=== PATIENT | female | born 1955 | race Caucasian/White ===

== ENCOUNTER → 2016-05-22 | Outpatient (CLI) | payer OTHER ==
[~2016-05-22] MED LIST: ASPCH81X PO; BIOT1CAP8 PO; CALC600T37 PO; CALCTAB5 PO; CHOL100010 PO; CITA40TA12 PO; CLX20 PO; FOLI1TAB7 PO; IBAN150T PO; METO25TA3 PO; MOME6000 NAE; VITACAP26 PO; VNCAQN INH
--- NOTE | 2016-05-22 08:24 | DIAGNOSTIC IMAGING REPORT ---
RIGHT ELBOW MIN 3 VIEWS ROUTINE CLINICAL HISTORY: ELBOW PAIN Right pain COMPARISON: None. DISCUSSION: The bones and joint spaces appear intact. There is no evidence of fracture, dislocation or bony disease. There is no evidence for soft tissue swelling. IMPRESSION: Negative study. Electronically signed by: Yung Medina M.D. 05/22/2016 8:23 AM Dictated Date/Time: 05/22/2016 8:22 AM
== END | disposition home or self-care (01) ==
LOC: C.RAD 07:54
PROVIDERS: ATTEND Orthopaedic Surgery
DX: M25.521 Pain in right elbow (principal)

== ENCOUNTER 2016-09-29 08:59 | Emergency (ER) | payer OTHER ==
[~2016-09-29] VITALS: Ht 175.3 cm; Wt 70.9 kg
[~2016-09-29 08:59] MED LIST changes: -BIOT1CAP8 PO; -CALC600T37 PO; -CITA40TA12 PO; -FOLI1TAB7 PO; -MOME6000 NAE; -VITACAP26 PO
[2016-09-29 09:07] VITALS: TEMP 36.7; Ht 175.3 cm; Wt 70.9 kg
--- NOTE | 2016-09-29 09:24 | EMERGENCY ROOM VISIT NOTE ---
History Report prepared by Zeinab: Mattie Blanchard Under the Supervision of: Dr. Jerome Delgado M.D. 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 The patient states that she was working and noticed that she had black spots and streaks in her vision. She notes that she is also noticing some blurry vision that may be secondary to the black streaks in her vision. The patient denies any numbness, pain, headache, palpitations, heavy lifting, and medication changes. She notes a history of intermittent atrial fibrillation and SVT. 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 The patient denies any pain, headache, palpitations, heavy lifting, and medication changes. Review of Systems All systems have been listed, reviewed, and are negative other than those previously mentioned. Please see Additional Medical History Sheet. Past Medical & Surgical Medical Problems: (1) Hypertension Nos Family History No pertinent family history stated. Social History Smoking Status: Never Smoker Marital Status: Housing Status: lives with significant other Occupation Status: employed Current/Historical Medications Scheduled Aspirin (Aspirin Chewable), 81 MG PO DAILY Biotin (Biotin), 1 CAP PO DAILY Calcium (Calcium), 1 TAB PO DAILY Cholecalciferol (Vitamin D), 1 TAB PO DAILY Citalopram Hydrobromide (Celexa), 40 MG PO DAILY Folic Acid (Folvite), 1 TAB PO DAILY Metoprolol Succ (Toprol Xl) (Toprol-Xl), 12.5 MG PO BID Vitamins C & E (Vitamin C), 1 CAP PO DAILY Scheduled PRN Mometasone Furoate (Nasal) (Mometasone Furoate), 2 SPRAYS BEKAH DAILY PRN for ALLERGIES Allergies Coded Allergies: Sulfa Antibiotics (Verified Allergy, Unknown, ., 05/18/14) Physical Exam Vital Signs Date Time Temp Pulse Resp B/P (MAP) Pulse Ox O2 Delivery O2 Flow Rate FiO2 09/29/16 10:31 59 16 123/64 95 09/29/16 09:07 36.7 70 20 121/74 96 Room Air Physical Exam GENERAL: Patient awake, alert, oriented x 3. Patient follows commands. Patient does not appear toxic. Patient is adequately hydrated and well- nourished. SKIN: No erythema, pallor, cyanosis or rash HEENT: Normal head, pupils equal, reactive to light and accommodation, extraocular movements intact, funduscopic disc, vessels, and background appear normal, no signs of a bleed or retinal detachment. Tonometry left eye 15.3 right eye 17. Ears normal. Oral cavity and posterior pharynx appear normal. Neck: Without adenopathy, no neck vein distention. LUNGS: Clear to auscultation. No wheezes, no rales, no rhonchi. HEART: No murmurs. No gallops. No rubs ABDOMEN: No masses, no rebound, no hepatomegaly or splenomegaly. EXTREMITIES: No signs of trauma. No pedal or pretibial edema. No calf or thigh tenderness. NEUROLOGIC: Cranial nerves II-XII within normal limits. No gross motor sensory function deficits. VISUAL ACUITY: Right eye 20/40 left eye is 20/30 Medical Decision & Procedures Procedure Slit Lamp Examination Indication: black spots left eye The left eye was prepped with topical proparacaine. Slit lamp examination was performed in the standard fashion. Cornea appeared clear. Anterior chamber clear. Scleral injection not present. No discharge present. Fluorescein examination performed and revealed no uptake. No foreign bodies noted. Negative Mateo sign. The patient tolerated the procedure well without complication. ED Course 0914: Past medical records reviewed. The patient was evaluated in room B11B. A complete history and physical examination was performed. 0943: I performed a slit lamp exam. 1020: Upon reevaluation, the patient appeared to have improvement of her symptoms. I discussed today's findings with the patient. She verbalized agreement of the treatment plan. The patient was discharged home. Medical Decision Differential diagnosis includes retinal detachment and floaters. Medication Reconciliation: I attest that I have personally reviewed the patient' s current medication list. Blood pressure Screening: Patient was found to have normal blood pressure on screening and does not require follow up. The patient is here with black streaks and black dots in her left eye. Funduscopic exam, slit lamp exam and tonometry all appear within normal. I remain concerned about a possible vitreous hemorrhage or retinal detachment. Discussion was held over the phone with Dr. Reyes. He will see the patient later today. I also discussed care with the patient. Impression Primary Impression: Visual field defect Scribe Attestation The scribe's documentation has been prepared under my direction and personally reviewed by me in its entirety. I confirm that the note above accurately reflects all work, treatment, procedures, and medical decision making performed by me. Departure Information Dispostion Home / Self-Care Referrals Mica Florentino D.O. (PCP) Monty Reyes M.D. Forms HOME CARE DOCUMENTATION FORM, IMPORTANT VISIT INFORMATION, WORK / SCHOOL INSTRUCTIONS Patient Instructions My [facility] Additional Instructions Follow-up with Dr. Gomez at 1245 today in his office. Off work until then.
[2016-09-29] MEDS ORDERED: CITA40TA12 PO (09:55)
[2016-09-29] MEDS ORDERED: FOLI1TAB7 PO (09:55)
[2016-09-29] MEDS ORDERED: MOME6000 NAE (09:55)
[2016-09-29] MEDS ORDERED: CALC600T37 PO (09:55)
[2016-09-29] MEDS ORDERED: VITACAP26 PO (09:55)
[2016-09-29] MEDS ORDERED: CHOL100010 PO (09:55)
[2016-09-29] MEDS ORDERED: BIOT1CAP8 PO (09:55)
[2016-09-29 10:31] VITALS: BP 123/64; PULSE 59; O2SAT 95
== END 2016-09-29 10:32 | disposition home or self-care (01) ==
LOC: C.EDB 08:59
DX: H53.452 Other localized visual field defect, left eye (principal); I10 Essential (primary) hypertension; Z79.82 Long term (current) use of aspirin

== ENCOUNTER 2017-04-19 07:48 | Emergency (ER) | payer OTHER ==
[~2017-04-19] VITALS: Ht 175.3 cm; Wt 68.8 kg
[~2017-04-19 07:48] MED LIST changes: +BIOT1CAP8 PO; +CALC600T37 PO; -CALCTAB5 PO; +CITA40TA12 PO; -CLX20 PO; +FOLI1TAB8 PO; -IBAN150T PO; +MOME6000 NAE; +VITACAP26 PO; -VNCAQN INH
[2017-04-19 07:49] VITALS: TEMP 36.7; Ht 175.3 cm; Wt 68.8 kg
[2017-04-19] MEDS ORDERED: CALC-393 PO (08:00)
--- NOTE | 2017-04-19 08:05 | EMERGENCY ROOM VISIT NOTE ---
History Report prepared by Zeinab: James Puga Under the Supervision of: Dr. Jerome Delgado M.D. First contact with patient: 07:55 Chief Complaint: SWELLING TO EXTREMITY Stated Complaint: FACIAL AND NECK EDEMA,DIZZINESS History of Present Illness The patient is a 62 year old female who presents to the Emergency Room with complaints of worsening upper body swelling that started a week and a half ago. She states that before the swelling started, she was seen by Dr. Herman (her family doctor), and was told that she had a viral illness. However, the patient says that a few mornings later, she woke up with swelling in her neck, face, and under her arms. She notes that the swelling has been worsening, and today the swelling is worse on her right side. She adds that she started feeling dizzy today in addition to some lightheadedness. The patient states that she has had lab testing a week ago at [facility] as well as a mammogram, ultrasound, and x-ray, which were all normal. She has a CT scan scheduled for tomorrow. She denies any fevers, chills, abdominal pain, back pain, urinary symptoms, leg pain , hand swelling, or feet swelling. Source of History: patient Onset: A week and a half ago Position: other (upper body ) Quality: other (swelling) Timing: worsening Associated Symptoms: No fevers, No chills, No abdominal pain, No back pain, No urinary symptoms Note: Associated symptoms: Dizzy, lightheaded. Denies leg pain, hand swelling, feet swelling. Review of Systems All systems have been listed, reviewed, and are negative other than those previously mentioned. Please see Additional Medical History Sheet. Past Medical & Surgical Medical Problems: (1) Hypertension Nos Family History Diabetes mellitus Heart disease Hypertension Social History Smoking Status: Never Smoker Marital Status: Housing Status: lives with significant other Occupation Status: employed Current/Historical Medications Scheduled Aspirin (Aspirin Chewable), 81 MG PO DAILY Biotin (Biotin), 1 CAP PO DAILY Calcium Carbonate (Calcium), 1,200 MG PO DAILY Cholecalciferol (Vitamin D), 1 TAB PO DAILY Citalopram Hydrobromide (Celexa), 40 MG PO DAILY Folic Acid (Folvite), 1 TAB PO DAILY Metoprolol Succ (Toprol Xl) (Toprol-Xl), 12.5 MG PO BID Scheduled PRN Mometasone Furoate (Nasal) (Mometasone Furoate), 2 SPRAYS BEKAH DAILY PRN for ALLERGIES Allergies Coded Allergies: Sulfa Antibiotics (Verified Allergy, Unknown, ., 04/19/17) Physical Exam Vital Signs Date Time Temp Pulse Resp B/P (MAP) Pulse Ox O2 Delivery O2 Flow Rate FiO2 04/19/17 09:35 71 18 126/73 96 Room Air 04/19/17 07:49 36.7 72 20 135/83 97 Room Air Physical Exam GENERAL: Patient awake, alert, oriented x 3. Patient follows commands. Patient does not appear toxic. Patient is adequately hydrated and well- nourished. SKIN: No erythema, pallor, cyanosis or rash HEENT: Normal head, pupils equal, reactive to light and accommodation. Ears normal. Oral cavity and posterior pharynx appear normal. Neck: Without adenopathy, no neck vein distention. LUNGS: Clear to auscultation. No wheezes, no rales, no rhonchi. HEART: No murmurs. No gallops. No rubs CHEST: Patient has slight edema to upper chest and neck. No cervical adenopathy. No masses, no signs of infection. ABDOMEN: No masses, no rebound, no hepatomegaly or splenomegaly. EXTREMITIES: No signs of trauma. No pedal or pretibial edema. No calf or thigh tenderness. NEUROLOGIC: Cranial nerves II-XII within normal limits. No gross motor sensory function deficits. Medical Decision & Procedures ER Provider Diagnostic Interpretation: CT results are interpretations by the radiologist and per my review. CHEST CT WITH CONTRAST CT DOSE: HISTORY: swelling upper chest and neck TECHNIQUE: Multiaxial CT images of the chest were performed following the intravenous administration of contrast. A dose lowering technique was utilized adhering to the principles of ALARA. COMPARISON: None. FINDINGS: 5 mm nodule within the left major fissure on image 178. Mild biapical pleural-parenchymal scarring. A 4 mm nodule within the right middle lobe on image 174. A 4 mm nodule within the right middle lobe on image 216. A 7 mm nodule within the base of the right lower lobe on image 234. There are 2 adjacent nodules within the right lower lobe in image 29 with the largest measuring 4 mm. Patchy groundglass density seen within the bases of the bilateral lower lobes. The central airways are patent. No pleural effusions. No pneumothorax. No suspicious lytic or blastic osseous lesions. No soft tissue edema within the neck base or anterior chest. A 1 cm nodule within the left thyroid lobe. The major vascular structures within the mediastinum are patent. Normal caliber thoracic aorta. The heart is normal in size. No mediastinal or hilar lymphadenopathy. A few scattered hypodense lesions seen within the liver with the largest in the left hepatic lobe measuring 5 mm. These are too small to characterize. The spleen and adrenal glands are unremarkable. IMPRESSION: 1. No significant soft tissue swelling seen within the neck base or chest. 2. The major mediastinal vascular structures are patent. 3. Patchy ground glass densities within the base of the bilateral lower lobes. This favors mild dependent change. A pneumonia could also have a similar appearance but is considered less likely. Clinical correlation recommended. 4. A few scattered subcentimeter indeterminate pulmonary nodules with the largest in the right lower lobe measuring 7 mm. Please refer to the chart below for recommended follow-up. Please refer to below summary of Fleischner criteria recommendations for follow-up of incidental CT nodules (Maite March, Guidelines for management of small pulmonary nodules detected on CT scans: A statement from the Fleischner Society, Radiology 237: [phone].) SOLID NODULES Solitary nodule size: <6 mm * Low risk patients: no follow-up needed * high risk patients: optional CT at 12 months Solitary nodule size: 6-8 mm * Low risk patients: follow-up at 6-12 months, then consider further follow-up at 18-24 months * high risk patients: initial follow-up CT at 6-12 months and then at 18-24 months if no change Solitary nodule size: >8 mm * either low or high risk patients - consider follow-up CT at 3 months, and/or CT-PET, and/or biopsy Multiple nodules size: <6 mm * Low risk patients: no routine follow-up * high risk patients: optional CT at 12 months Multiple nodules size: 6-8 mm * Low risk patients: follow-up at 3-6 months, then consider further follow-up at 18-24 months * high risk patients: follow-up at 3-6 months, then at 18-24 months if no change Multiple nodules size: >8 mm * Low risk patients: follow-up at 3-6 months, then consider further follow-up at 18-24 months * high risk patients: follow-up at 3-6 months, then at 18-24 months if no change Note: newly detected indeterminate nodule in persons 35 years of age or older. * Low risk patients: minimal or absent history of smoking and/or other known risk factors * high risk patients: history of smoking or of other known risk factors (e.g. first degree relative with lung cancer, or exposure to asbestos, radon, uranium) * if a nodule up to 8 mm is partly solid or is ground glass further follow-up is required after 24 months to exclude possible slow growing adenocarcinoma (NASIR) SUBSOLID NODULES Solitary pure ground-glass nodule * nodule size <6 mm - no CT follow-up required * nodule size >=6 mm - follow-up CT at 6-12 months, then every 2 years until 5 years Solitary part-solid nodule * nodule size <6 mm - no CT follow-up required * nodule size >=6 mm - follow-up CT at 3-6 months. If unchanged, and solid component remains <6 mm, then annual follow-up for 5 years Multiple subsolid nodules * nodule size <6 mm - follow-up CT at 3-6 months, consider further follow-up at 2 and 4 years if stable * nodule size >=6 mm - follow-up CT at 3-6 months, subsequent management based on the most suspicious nodule(s) Electronically signed by: Jonn Archer M.D. 04/19/2017 9:39 AM Dictated Date/Time: 04/19/2017 9:[address] ANGIOGRAPHY OF THE NECK WITH CONTRAST CLINICAL HISTORY: Facial and neck edema. Dizziness. COMPARISON STUDY: No previous studies for comparison. Technique: CT angiography of the carotid and vertebral arteries was obtained using [employer] 320 IV and 3D reconstruction on an independent workstation. NASCET criteria was utilized. A dose lowering technique was utilized adhering to the principles of ALARA. CT DOSE: 785.52 mGy.cm Findings: Multiple thyroid nodules are noted, largest of which is a 1.1 cm left lobe nodule. There is no cervical lymphadenopathy. No cervical mass is present. The chest CT will be reported separately. The epiglottis is normal. Note is made of a 1.2 cm round hypodensity with thin peripheral enhancement within the left aspect of the vallecula. This suggests a vallecular cyst. The bilateral common carotid, internal carotid and vertebral arteries are patent. There is no significant stenosis. There is no dissection within these vessels. Visualized portions of the intracranial contents are unremarkable. No suspicious skeletal lesions are present. There is no abscess within the neck. No suspicious mucosal lesion is identified although these may be occult by CT. Airways patent. IMPRESSION: 1. No stenosis or dissection within the major vessels of the neck. Unremarkable CTA of the neck. 2. 1.2 cm hypodense lesion with enhancing rim within the left aspect of the vallecula. This suggests a vallecular cyst and has benign imaging characteristic. This is of questionable significance however nonemergent ENT consultation is recommended. 3. Several thyroid nodules. Electronically signed by: Peter Waldron M.D. 04/19/2017 9:58 AM Dictated Date/Time: 04/19/2017 9:39 AM Laboratory Results 04/19/17 08:25 Red Blood Count 4.55, Mean Corpuscular Volume 92.1, Mean Corpuscular Hemoglobin 30.5, Mean Corpuscular Hemoglobin Concent 33.2, Mean Platelet Volume 9.4, Neutrophils (%) (Auto) 49.3, Lymphocytes (%) (Auto) 38.4, Monocytes (%) (Auto) 8.8, Eosinophils (%) (Auto) 2.7, Basophils (%) (Auto) 0.4, Neutrophils # (Auto) 2.53, Lymphocytes # (Auto) 1.97, Monocytes # (Auto) 0.45, Eosinophils # (Auto) 0.14, Basophils # (Auto) 0.02 04/19/17 08:25 Test 04/19/17 08:25 White Blood Count 5.13 K/uL (4.8-10.8) Red Blood Count 4.55 M/uL (4.2-5.4) Hemoglobin 13.9 g/dL (12.0-16.0) Hematocrit 41.9 % (37-47) Mean Corpuscular Volume 92.1 fL (80-100) Mean Corpuscular Hemoglobin 30.5 pg (25-34) Mean Corpuscular Hemoglobin Concent 33.2 g/dl (32-36) Platelet Count 219 K/uL (130-400) Mean Platelet Volume 9.4 fL (7.4-10.4) Neutrophils (%) (Auto) 49.3 % Lymphocytes (%) (Auto) 38.4 % Monocytes (%) (Auto) 8.8 % Eosinophils (%) (Auto) 2.7 % Basophils (%) (Auto) 0.4 % Neutrophils # (Auto) 2.53 K/uL (1.4-6.5) Lymphocytes # (Auto) 1.97 K/uL (1.2-3.4) Monocytes # (Auto) 0.45 K/uL (0.11-0.59) Eosinophils # (Auto) 0.14 K/uL (0-0.5) Basophils # (Auto) 0.02 K/uL (0-0.2) RDW Standard Deviation 45.3 fL (36.4-46.3) RDW Coefficient of Variation 13.4 % (11.5-14.5) Immature Granulocyte % (Auto) 0.4 % Immature Granulocyte # (Auto) 0.02 K/uL (0.00-0.02) Anion Gap 3.0 mmol/L (3-11) Est Creatinine Clear Calc Drug Dose 89.7 ml/min Estimated GFR () 108.7 Estimated GFR (Non- 93.7 BUN/Creatinine Ratio 33.5 (10-20) Calcium Level 9.2 mg/dl (8.5-10.1) Total Bilirubin 0.4 mg/dl (0.2-1) Aspartate Amino Transf (AST/SGOT) 21 U/L (15-37) Alanine Aminotransferase (ALT/SGPT) 51 U/L (12-78) Alkaline Phosphatase 78 U/L (45-117) Total Protein 6.9 gm/dl (6.4-8.2) Albumin 3.9 gm/dl (3.4-5.0) Globulin 3.0 gm/dl (2.5-4.0) Albumin/Globulin Ratio 1.3 (0.9-2) Laboratory results as stated above per my review. ECG Indication: other (dizzy) Rate (beats per minute): 65 Rhythm: normal sinus Findings: no acute ischemic change, no ectopy ED Course 0757: Past medical records reviewed. The patient was evaluated in room A10. A complete history and physical examination was performed. 1007: Upon reevaluation, the patient appeared to have improvement of her symptoms. I discussed today's findings with her. She verbalized agreement of the treatment plan. She was discharged home. Medical Decision I considered multiple diagnoses including subclavian outlet syndrome, peripheral edema, pneumonia and other infections. Multiple labs including a CT of her chest and neck were obtained. Please see above. The patient has a few pulmonary nodules and a questionable cyst near the vallecula which I do not believe are related to her present complaints. I do not have a specific cause for her swelling or her lightheadedness although this may be related to a recent viral infection. The patient is safe to return home. She was encouraged to rest and not return to work today. She is to follow-up with a family physician. She will need follow-up for the pulmonary nodules and the cyst near her vallecula. Medication Reconcilliation Current Medication List: was personally reviewed by me Blood Pressure Screening Patient's blood pressure: Normal blood pressure Impression Primary Impression: Neck swelling Scribe Attestation The scribe's documentation has been prepared under my direction and personally reviewed by me in its entirety. I confirm that the note above accurately reflects all work, treatment, procedures, and medical decision making performed by me. Departure Information Dispostion Home / Self-Care Referrals Mica Florentino D.O. (PCP) Patient Instructions My [facility] Additional Instructions Follow-up with your family physician regarding the swelling, pulmonary nodules and vallecular cyst. Off work today.
[2017-04-19] MEDS ORDERED: OPTIRAY 320 IV PRN (08:30)
[2017-04-19 08:39] LABS: BASO % 0.4 %; BASO ABS # 0.02 K/uL (0-0.2); EOS % 2.7 %; EOS ABS # 0.14 K/uL (0-0.5); HEMATOCRIT 41.9 % (37-47); HEMOGLOBIN 13.9 g/dL (12.0-16.0); IG# 0.02 K/uL (0.00-0.02); LYMPH % 38.4 %; LYMPH ABS # 1.97 K/uL (1.2-3.4); MEAN CELL VOLUME 92.1 fL (80-100); MEAN CORPUSCULAR HEMOGLOBIN 30.5 pg (25-34); MEAN CORPUSCULAR HGB CONC 33.2 g/dl (32-36); MEAN PLATELET VOLUME 9.4 fL (7.4-10.4); MONO % 8.8 %; MONO ABS # 0.45 K/uL (0.11-0.59); NEUT % 49.3 %; NEUT ABS # 2.53 K/uL (1.4-6.5); PLATELET COUNT 219 K/uL (130-400); RED CELL DISTRIBUTION WIDTH CV 13.4 % (11.5-14.5); RED CELL DISTRIBUTION WIDTH SD 45.3 fL (36.4-46.3); WHITE BLOOD COUNT 5.13 K/uL (4.8-10.8)
[2017-04-19 08:55] LABS: ALBUMIN 3.9 gm/dl (3.4-5.0); CALCIUM 9.2 mg/dl (8.5-10.1); CREATININE 0.68 mg/dl (0.60-1.20)
[2017-04-19 08:58] LABS: TOTAL PROTEIN 6.9 gm/dl (6.4-8.2)
[2017-04-19 09:35] VITALS: BP 126/73; PULSE 71; O2SAT 96
--- NOTE | 2017-04-19 09:41 | DIAGNOSTIC IMAGING REPORT ---
CHEST CT WITH CONTRAST CT DOSE: HISTORY: swelling upper chest and neck TECHNIQUE: Multiaxial CT images of the chest were performed following the intravenous administration of contrast. A dose lowering technique was utilized adhering to the principles of ALARA. COMPARISON: None. FINDINGS: 5 mm nodule within the left major fissure on image 178. Mild biapical pleural-parenchymal scarring. A 4 mm nodule within the right middle lobe on image 174. A 4 mm nodule within the right middle lobe on image 216. A 7 mm nodule within the base of the right lower lobe on image 234. There are 2 adjacent nodules within the right lower lobe in image 29 with the largest measuring 4 mm. Patchy groundglass density seen within the bases of the bilateral lower lobes. The central airways are patent. No pleural effusions. No pneumothorax. No suspicious lytic or blastic osseous lesions. No soft tissue edema within the neck base or anterior chest. A 1 cm nodule within the left thyroid lobe. The major vascular structures within the mediastinum are patent. Normal caliber thoracic aorta. The heart is normal in size. No mediastinal or hilar lymphadenopathy. A few scattered hypodense lesions seen within the liver with the largest in the left hepatic lobe measuring 5 mm. These are too small to characterize. The spleen and adrenal glands are unremarkable. IMPRESSION: 1. No significant soft tissue swelling seen within the neck base or chest. 2. The major mediastinal vascular structures are patent. 3. Patchy ground glass densities within the base of the bilateral lower lobes. This favors mild dependent change. A pneumonia could also have a similar appearance but is considered less likely. Clinical correlation recommended. 4. A few scattered subcentimeter indeterminate pulmonary nodules with the largest in the right lower lobe measuring 7 mm. Please refer to the chart below for recommended follow-up. Please refer to below summary of Fleischner criteria recommendations for follow-up of incidental CT nodules (Maite March, Guidelines for management of small pulmonary nodules detected on CT scans: A statement from the Fleischner Society, Radiology 237: [phone].) SOLID NODULES Solitary nodule size: <6 mm * Low risk patients: no follow-up needed * high risk patients: optional CT at 12 months Solitary nodule size: 6-8 mm * Low risk patients: follow-up at 6-12 months, then consider further follow-up at 18-24 months * high risk patients: initial follow-up CT at 6-12 months and then at 18-24 months if no change Solitary nodule size: >8 mm * either low or high risk patients - consider follow-up CT at 3 months, and/or CT-PET, and/or biopsy Multiple nodules size: <6 mm * Low risk patients: no routine follow-up * high risk patients: optional CT at 12 months Multiple nodules size: 6-8 mm * Low risk patients: follow-up at 3-6 months, then consider further follow-up at 18-24 months * high risk patients: follow-up at 3-6 months, then at 18-24 months if no change Multiple nodules size: >8 mm * Low risk patients: follow-up at 3-6 months, then consider further follow-up at 18-24 months * high risk patients: follow-up at 3-6 months, then at 18-24 months if no change Note: newly detected indeterminate nodule in persons 35 years of age or older. * Low risk patients: minimal or absent history of smoking and/or other known risk factors * high risk patients: history of smoking or of other known risk factors (e.g. first degree relative with lung cancer, or exposure to asbestos, radon, uranium) * if a nodule up to 8 mm is partly solid or is ground glass further follow-up is required after 24 months to exclude possible slow growing adenocarcinoma (NASIR) SUBSOLID NODULES Solitary pure ground-glass nodule * nodule size <6 mm - no CT follow-up required * nodule size >=6 mm - follow-up CT at 6-12 months, then every 2 years until 5 years Solitary part-solid nodule * nodule size <6 mm - no CT follow-up required * nodule size >=6 mm - follow-up CT at 3-6 months. If unchanged, and solid component remains <6 mm, then annual follow-up for 5 years Multiple subsolid nodules * nodule size <6 mm - follow-up CT at 3-6 months, consider further follow-up at 2 and 4 years if stable * nodule size >=6 mm - follow-up CT at 3-6 months, subsequent management based on the most suspicious nodule(s) Electronically signed by: Jonn Archer M.D. 04/19/2017 9:39 AM Dictated Date/Time: 04/19/2017 9:31 AM
--- NOTE | 2017-04-19 09:59 | DIAGNOSTIC IMAGING REPORT ---
CT ANGIOGRAPHY OF THE NECK WITH CONTRAST CLINICAL HISTORY: Facial and neck edema. Dizziness. COMPARISON STUDY: No previous studies for comparison. Technique: CT angiography of the carotid and vertebral arteries was obtained using [employer] 320 IV and 3D reconstruction on an independent workstation. NASCET criteria was utilized. A dose lowering technique was utilized adhering to the principles of ALARA. CT DOSE: 785.52 mGy.cm Findings: Multiple thyroid nodules are noted, largest of which is a 1.1 cm left lobe nodule. There is no cervical lymphadenopathy. No cervical mass is present. The chest CT will be reported separately. The epiglottis is normal. Note is made of a 1.2 cm round hypodensity with thin peripheral enhancement within the left aspect of the vallecula. This suggests a vallecular cyst. The bilateral common carotid, internal carotid and vertebral arteries are patent. There is no significant stenosis. There is no dissection within these vessels. Visualized portions of the intracranial contents are unremarkable. No suspicious skeletal lesions are present. There is no abscess within the neck. No suspicious mucosal lesion is identified although these may be occult by CT. Airways patent. IMPRESSION: 1. No stenosis or dissection within the major vessels of the neck. Unremarkable CTA of the neck. 2. 1.2 cm hypodense lesion with enhancing rim within the left aspect of the vallecula. This suggests a vallecular cyst and has benign imaging characteristic. This is of questionable significance however nonemergent ENT consultation is recommended. 3. Several thyroid nodules. Electronically signed by: Peter Waldron M.D. 04/19/2017 9:58 AM Dictated Date/Time: 04/19/2017 9:39 AM
== END 2017-04-19 10:37 | disposition home or self-care (01) ==
LOC: C.EDB 07:49 → C.EDA 10:37
DX: R22.1 Localized swelling, mass and lump, neck (principal); R22.0 Localized swelling, mass and lump, head; R91.1 Solitary pulmonary nodule; I10 Essential (primary) hypertension; Z79.82 Long term (current) use of aspirin; Z79.899 Other long term (current) drug therapy; Z88.2 Allergy status to sulfonamides; Z83.3 Family history of diabetes mellitus; Z82.49 Family history of ischemic heart disease and other diseases of the circulatory system

== ENCOUNTER → 2017-05-25 | Outpatient (CLI) | payer OTHER ==
[~2017-05-25] MED LIST changes: +CALC-393 PO; -CALC600T37 PO; -VITACAP26 PO
== END | disposition home or self-care (01) ==
LOC: C.LAB 12:31
PROVIDERS: ATTEND Internal Medicine Endocrinology, Diabetes & Metabolism
DX: E04.2 Nontoxic multinodular goiter (principal)

== ENCOUNTER → 2017-06-04 | Outpatient (CLI) | payer OTHER ==
--- NOTE | 2017-06-04 15:01 | DIAGNOSTIC IMAGING REPORT ---
SOFT TISS HEAD/NECK-THYROID HISTORY: Thyroid nodules abnormal CT exam COMPARISON: CT 04/19/2017 FINDINGS: Right lobe: Maximum dimension 4.7 cm. Several hypoechoic and/or cystic nodules the largest of which measures 5 mm. Left lobe: Maximum dimension 4.8 cm. Complex nodule left mid pole measuring 1.7 x 1.2 cm. Several smaller sub-1 cm nodules are also present. Isthmus: No nodules. IMPRESSION: 1. Findings consistent with a multicystic multinodular thyroid. 2. Largest nodule is complex and contains several microcalcifications with a mild increase in vascularity. 3. aspiration under ultrasound guidance of the largest complex nodule of the left thyroid lobe is suggested. The above report was generated using voice recognition software. It may contain grammatical, syntax or spelling errors. Electronically signed by: Yung Medina M.D. 06/04/2017 3:00 PM Dictated Date/Time: 06/04/2017 2:56 PM
== END | disposition home or self-care (01) ==
LOC: C.ULTR 14:01
PROVIDERS: ATTEND Internal Medicine Endocrinology, Diabetes & Metabolism
DX: E04.2 Nontoxic multinodular goiter (principal)

== ENCOUNTER 2019-01-26 15:57 | Inpatient (IN) ==
[2019-01-26] MEDS ORDERED: dilTIAZem HCL 125 MG in DEXTROSE 5% 100 ML IV STA (16:22)
[2019-01-26] MEDS ORDERED: dilTIAZem HCl 5 MG/ML 5 ML VIAL IV STA (16:22)
[2019-01-26] MEDS ORDERED: SODIUM CHLORIDE 0.9% 500 ML IV SCH (16:30)
[2019-01-26 16:37] LABS: Basophils # (auto) 0.02 K/uL (0-0.2); Basophils % (auto) 0.3 %; Eosinophils # (auto) 0.15 K/uL (0-0.5); Eosinophils % (auto) 2.2 %; Hematocrit (blood only) 44.1 % (37-47); Hemoglobin 15.5 g/dL (12.0-16.0); Immature Granulocytes # (auto) 0.02 K/uL (0.00-0.02); Immature Granulocytes % (auto) 0.3 %; Lymphocytes # (auto) 3.13 K/uL (1.2-3.4); Lymphocytes % (auto) 45.5 %; Mean Corpuscular Hemoglobin 31.6 pg (25-34); Mean Corpuscular Hgb Conc 35.1 g/dL (32-36); Monocytes # (auto) 0.53 K/uL (0.11-0.59); Monocytes % (auto) 7.7 %; Neutrophils # (auto) 3.03 K/uL (1.4-6.5); Platelet Count 215 K/uL (130-400); RDW Coefficient of Variation 12.5 % (11.5-14.5); RDW Standard Deviation 41.2 fL (36.4-46.3); White Blood Count 6.88 K/uL (4.8-10.8)
[2019-01-26 16:53] LABS: Albumin Level 4.5 gm/dl (3.4-5.0); BUN Creatinine Ratio 25.1 (10-20); Calcium 9.8 mg/dl (8.5-10.1); Creatinine Clr Calc Pharmacy 80.3 ml/min; Est GFR (African American) 99.2; Est GFR (Non-African American) 85.6; Magnesium 2.1 mg/dl (1.8-2.4); Potassium 3.4 mmol/L (3.5-5.1)
[2019-01-26 17:04] LABS: Albumin Globulin Ratio 1.2 (0.9-2); Bilirubin,Total 0.6 mg/dl (0.2-1); Globulin 3.7 gm/dl (2.5-4.0); Thyroid Stimulating Hormone 4.04 uIu/ml (0.300-4.500); Total Protein 8.2 gm/dl (6.4-8.2)
--- NOTE | 2019-01-26 17:12 | XRay Report ---
XR chest 1V portable HISTORY: Atypical chest pain. COMPARISON: Chest CT 07/15/2018. FINDINGS: No pneumothorax. No pleural effusions. No focal lung consolidations to suggest pneumonia. N o evidence for pulmonary edema. Mild emphysema. The heart is normal in size. There is an electronic d evice overlying the left upper chest. IMPRESSION: No acute process. Electronically signed by: Jonn Archer M.D. 01/26/2019 5:11 PM
[2019-01-26] MEDS ORDERED: POTASSIUM CHLORIDE / WTR 10 MEQ/100 ML PLCT IV ONE (17:37)
[2019-01-26] MEDS ORDERED: ACETAMINOPHEN 325 MG TAB PO PRN (18:42)
[2019-01-26] MEDS ORDERED: ALUMINUM/MAGNESIUM SUSP 30 ML UDC PO PRN (18:42)
[2019-01-26] MEDS ORDERED: ZOLPIDEM TARTRATE 5 MG TAB PO PRN (18:42)
[2019-01-26] MEDS ORDERED: MAGNESIUM HYDROXIDE SUSP 30 ML UDC PO PRN (18:42)
[2019-01-26] MEDS ORDERED: POLYETHYLENE (MIRALAX) 17 GM PACK PO PRN (18:42)
--- NOTE | 2019-01-26 19:00 | History & Physical Report ---
Date of Service January 26, 2019 Assessment & Plan (1) Atrial fibrillation with RVR: Admit to PCU on telemetry for new onset of A. fib's with RVR Vital signs every 4 hours BNP pending, monitor daily CBC CMP, monitor electrolytes and replenish magnesium and potassium as needed TTE pending We will do US venous Doppler to rule out DVT and US of the carotid arteries buildup bilaterally to rule out stenosis Continue diltiazem drip Continue Xarelto 20 mg p.o. for A. fib's to prevent stroke CHAD2 1.9% risk of event per year if not anticoagulated. DVT prophylaxis as above already started on anticoagulation. Continue aspirin 81 Lipid panel pending in a.m. and A1c. Full code Present on Admission?: Yes (2) Chest pain, precordial: Atypical chest pain. Reproducible. Patient reports no chest pain at this time. Serial troponins with EKG x2 to rule out acute coronary syndrome. Present on Admission?: Yes (3) Hypokalemia: Potassium replenished with K rider 10 mEq +40 mEq p.o. Monitor potassium closely with daily labs. And replenished as needed. Present on Admission?: Yes History of Present Illness Chief Complaint: Palpitations Primary Care Provider: Isabel Holloway MD Patient is a 64 years old female with past medical history of hypertension and depression presented to the emergency room with a complaint of persistent palpitations that started approximately 2 weeks ago. 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 Her event monitor should, of next Sunday. Patient describes her palpitations associated with shortness of breath and having a back pain. Patient takes only baby aspirin 81 mg daily and metoprolol succinate 12.5 mg p.o. twice daily, cyclobenzaprine for back pain and some other supplemental vitamins. Patient denies fever, chills, chest pain, abdominal pain, frequency, urgency, hematemesis, dysuria, melena, hematuria. Patient consider herself being otherwise in good health. Patient does not report any recent stressors. In the emergency room patient was started on diltiazem drip for A. fib's with RVR and Xarelto for anticoagulation to prevent a stroke. Labs are reviewed: 142, potassium 3.4, replenished with K rider 10 mEq x 1 and given 1 dose of potassium 40 mEq x 1 p.o., chloride 108, BUN 19, creatinine 85.6, magnesium 2.1, AST 22, ALT 20, troponin 0 0.03, CHF 4.04. Chest x-ray no acute process. Allergies Allergy/AdvReac Type Severity Reaction Status Date / Time Sulfa (Sulfonamide Allergy Unknown . Verified 01/26/19 17:06 Antibiotics) morphine Allergy Hallucinati Verified 01/26/19 17:06 ng Home Medications Home Medications Medication Instructions Recorded Confirmed Type aspirin [Aspirin Low Dose] 81 mg PO DAILY 04/18/18 01/26/19 History biotin 1 mg PO DAILY 04/18/18 01/26/19 History cholecalciferol (vitamin D3) 2,000 unit PO DAILY 04/18/18 01/26/19 History [Vitamin D3] citalopram [Celexa] 40 mg PO DAILY 04/18/18 01/26/19 History cyclobenzaprine 10 mg PO Q8H PRN #21 tab 04/18/18 01/26/19 Rx folic acid 1 mg PO DAILY 04/18/18 01/26/19 History metoprolol succinate 12.5 mg PO BID 04/18/18 01/26/19 History mometasone 2 spry INTRANASAL DAILY 04/18/18 01/26/19 History ascorbic acid (vitamin C) [Vitamin 2,000 mg PO DAILY 07/31/18 01/26/19 History C] calcium carbonate [Calcium 600] 1,200 mg PO DAILY 07/31/18 01/26/19 History methylsulfonylmethane [MSM] 1,000 mg PO DAILY 07/31/18 01/26/19 History Thyroid 8 1 dose PO DAILY 11/15/18 01/26/19 History Past Med/Surg History Medical History Atrial fibrillation DX 8 YEARS AGO - FOLLOWS W/ DR. 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 Loftsman Required: No Beliefs That Will Affect Care: None Current Living Situation Comment: DTR LIVES W/ PT Feels Safe at Home: Yes Smoking Status: Never smoker Second Hand Exposure: No ; Hx Alcohol Use: Yes Hx Substance Use: No Review of Systems Review of Systems: All systems reviewed & are unremarkable except as noted in HPI & below Physical Exam Constitutional: WD/WN, vitals as above well developed Eyes: PERRL, conjunctivae normal, anicteric sclerae ENMT: external ear and nose normal, oropharynx normal Neck: trachea midline, no thyromegaly Respiratory: normal respiratory effort, lungs clear to auscultation Cardiovascular: Rate/Rhythm: + irregularly irregular Heart Sounds: normal S1 and normal S2 Gastrointestinal (Abdomen): normal bowel sounds, soft, nontender, no hepatosplenomegaly Musculoskeletal: no cyanosis or clubbing, extremities motor strength 5/5 Skin: no rashes, warm and dry Neurologic: patellar DTR's 2+ bilat, sensation intact Lymphatic: no cervical or axillary lymphadenopathy Results & Data Vital Signs (Past 12 Hours) Vital Signs Temp Pulse Pulse Resp BP BP Pulse Ox 01/26/19 18:53 110 H 21 97 01/26/19 18:40 101 H 18 103/73 94 01/26/19 18:35 111 H 16 111/69 96 01/26/19 18:30 87 15 111/69 96 01/26/19 18:20 87 15 113/75 96 01/26/19 18:11 86 16 131/75 96 01/26/19 18:10 107 H 17 96 01/26/19 18:00 96 H 19 124/65 95 01/26/19 17:50 105 H 18 116/82 97 01/26/19 17:40 105 H 15 121/81 97 01/26/19 17:30 99 H 14 111/78 96 01/26/19 17:20 115 H 21 120/72 97 01/26/19 17:10 105 H 22 121/94 96 01/26/19 17:00 111 H 105 H 20 117/79 117/79 97 01/26/19 16:51 123 H 18 139/114 H 98 01/26/19 16:50 109 H 16 99 01/26/19 16:41 98 H 24 122/61 98 01/26/19 16:40 114 H 16 97 01/26/19 16:34 114 H 16 123/63 97 01/26/19 16:30 152 H 17 94 01/26/19 16:26 132 H 31 H 98 01/26/19 16:25 155 H 27 H 146/95 H 99 01/26/19 16:04 36.4 C L 118 H 18 153/89 H 94 Code Status & VTE Plan Code Status Full code VTE Prophylaxis Plan VTE Prophylaxis will be ordered: Yes PG Care Time/CCT Total # of Minutes Spent Total Time Spent with Patient: Total time spent is greater than 50% in coordination of care (as documented) at patient's floor/unit and/or counseling patient:
[2019-01-26 19:37] LABS: NT Pro B Type Natriuretic Pept 107 pg/ml (0-900); Troponin I < 0.015 ng/ml (0-0.045)
--- NOTE | 2019-01-26 20:27 | Ultrasound Report ---
BILATERAL LOWER EXTREMITY VENOUS DOPPLER HISTORY: Short of breath. Cardiac arrhythmia. Leg cramping. possible deep venous thrombosis COMPARISON STUDY: None. FINDINGS: There is normal compressibility, flow, and augmentation within the bilateral lower extremit y deep venous systems. IMPRESSION: No DVT within the right or left lower extremity. Electronically signed by: Jonn Archer M.D. 01/26/2019 8:26 PM
--- NOTE | 2019-01-26 20:28 | Ultrasound Report ---
BILATERAL CAROTID DOPPLER STUDY HISTORY: Shortness of breath. Cardiac arrhythmia. possible carotid artery stenosis COMPARISON: Neck CTA 04/19/2017. TECHNIQUE: Real-time, grayscale, and color Doppler sonography of the carotid arteries was performed. Imaging reviewed in the transverse and longitudinal planes. All measurements were calculated based on NASCET criteria. FINDINGS: Antegrade flow is seen in the bilateral vertebral arteries. The brachial pressures were not obtained. The peak systolic velocity within the right ICA is 63 cm/s. The right systolic ratio is 0.9. The peak systolic velocity within the left ICA is 86 cm/s. The left systolic ratio is 1.1. IMPRESSION: No hemodynamically significant stenosis seen within the carotid arteries. Electronically signed by: Jonn Archer M.D. 01/26/2019 8:27 PM
[2019-01-26] MEDS ORDERED: dilTIAZem HCL 125 MG in DEXTROSE 5% 100 ML IV SCH (20:39)
[2019-01-26] MEDS ORDERED: CYCLOBENZAPRINE HCL 10 MG TAB PO PRN (20:39)
[2019-01-26] MEDS ORDERED: POTASSIUM CHLORIDE 20 MEQ TABCR PO STA (20:51)
--- NOTE | 2019-01-26 21:01 | Emergency Department Note ---
Entered by Mita Fontaine acting as a scribe for Adam Macr MD History of Present Illness General Chief complaint: Shortness of Breath/Dyspnea Stated complaint: WEAKNESS, SOB, CARDIAC ARYTHMIAS Source: patient Limitations: no limitations History of Present Illness Onset (ago): hour(s) 2 Location: chest Pain Consistency: + constant Maximum Pain Intensity: 3 Quality: + other ("a little pressure") Exacerbated By: + other (exertion) Associated symptoms: + denies other symptoms (diarrhea, abd pain ), + shortness of breath and + other (papitations, tachycardia); no nausea/vomiting The patient is a 64 year old female who presents to the Emergency Room with complaints of constant chest discomfort that began 2 hours ago. She described the discomfort to be "a little pressure." The patient notes that the pain radiates to her back. She complains of SOB upon exertion. The patient complains of intermittent tachycardia, stating that her pulse oximeter read her pulse to be 173 BIT SANDER. She notes that her heart rate is "up and down," stating that she doesn't feel her "heart racing" right now. The patient states that she has some chest palpitations two days ago. She denies any nausea/vomiting, diarrhea, abdominal pain, and lower extremity pain. The patient notes that she took 25 mg metoprolol about 2 hours ago. She states that she takes Aspirin daily. The patient notes a history of SVT and A-fib. Home Medications Home Medications Medication Instructions Recorded Confirmed Type aspirin [Aspirin Low Dose] 81 mg PO DAILY 04/18/18 01/26/19 History biotin 1 mg PO DAILY 04/18/18 01/26/19 History cholecalciferol (vitamin D3) 2,000 unit PO DAILY 04/18/18 01/26/19 History [Vitamin D3] citalopram [Celexa] 40 mg PO DAILY 04/18/18 01/26/19 History cyclobenzaprine 10 mg PO Q8H PRN #21 tab 04/18/18 01/26/19 Rx folic acid 1 mg PO DAILY 04/18/18 01/26/19 History metoprolol succinate 12.5 mg PO BID 04/18/18 01/26/19 History mometasone 2 spry INTRANASAL DAILY 04/18/18 01/26/19 History ascorbic acid (vitamin C) [Vitamin 2,000 mg PO DAILY 07/31/18 01/26/19 History C] calcium carbonate [Calcium 600] 1,200 mg PO DAILY 07/31/18 01/26/19 History methylsulfonylmethane [MSM] 1,000 mg PO DAILY 07/31/18 01/26/19 History Thyroid 8 1 dose PO DAILY 11/15/18 01/26/19 History Allergies Allergy/AdvReac Type Severity Reaction Status Date / Time Sulfa (Sulfonamide Allergy Unknown . Verified 01/26/19 17:06 Antibiotics) morphine Allergy Hallucinati Verified 01/26/19 17:06 ng Past Med/Surg History Medical History Atrial fibrillation DX 8 YEARS AGO - FOLLOWS W/ DR. LUCIO Chris's disease History of colitis History of ischemic bowel disease History of ventricular tachycardia "YEARS AGO" Osteoarthritis SVT (supraventricular tachycardia) "YEARS AGO" Surgical History History of breast biopsy History of left inguinal hernia repair History of lumpectomy of left breast History of vaginal hysterectomy Social History Preferred Language: Hungarian Communication Ability: Effective Bill Of Lading Clerk Required: No Beliefs That Will Affect Care: None Current Living Situation: Spouse Current Living Situation Comment: [facility] LIV[facility] W/ PT Feels Safe at Home: Yes Smoking Status: Never smoker Second Hand Exposure: No ; Hx Alcohol Use: Yes Hx Substance Use: No Review of Systems See HPI for pertinent positives & negatives. and A total of 10 systems reviewed and were otherwise negative Physical Exam Vital Signs Vital Signs - 24 hr 01/26/19 16:04 01/26/19 16:17 01/26/19 16:25 Temperature 36.4 C L Temperature Source Oral Sepsis Recent Fever Within 48 Hours No Sepsis New/Unexplained Change in Mental Status No Sepsis Action Taken by Nursing No Action Required Pulse Rate 118 H 155 H Pulse Rate [Left] Pulse Rate from SpO2 Sensor 107 H Respiratory Rate 18 27 H Blood Pressure 153/89 H 146/95 H Blood Pressure [Left Arm] Blood Pressure Mean 110 112 Blood Pressure Mean [Left Arm] Blood Pressure Position [Left Arm] Pulse Oximetry 94 99 Oxygen Delivery Method Room Air Room Air 01/26/19 16:26 01/26/19 16:29 01/26/19 16:30 Temperature Temperature Source Sepsis Recent Fever Within 48 Hours Sepsis New/Unexplained Change in Mental Status Sepsis Action Taken by Nursing Pulse Rate 132 H 152 H Pulse Rate [Left] Pulse Rate from SpO2 Sensor 123 H 147 H Respiratory Rate 31 H 17 Blood Pressure Blood Pressure [Left Arm] Blood Pressure Mean Blood Pressure Mean [Left Arm] Blood Pressure Position [Left Arm] Pulse Oximetry 98 94 Oxygen Delivery Method Room Air 01/26/19 16:34 01/26/19 16:40 01/26/19 16:41 Temperature Temperature Source Sepsis Recent Fever Within 48 Hours Sepsis New/Unexplained Change in Mental Status Sepsis Action Taken by Nursing Pulse Rate 114 H 114 H 98 H Pulse Rate [Left] Pulse Rate from SpO2 Sensor 102 H 105 H 83 Respiratory Rate 16 16 24 Blood Pressure 123/63 122/61 Blood Pressure [Left Arm] Blood Pressure Mean 83 81 Blood Pressure Mean [Left Arm] Blood Pressure Position [Left Arm] Pulse Oximetry 97 97 98 Oxygen Delivery Method 01/26/19 16:50 01/26/19 16:51 01/26/19 17:00 Temperature Temperature Source Sepsis Recent Fever Within 48 Hours Sepsis New/Unexplained Change in Mental Status Sepsis Action Taken by Nursing Pulse Rate 109 H 123 H 111 H Pulse Rate [Left] 105 H Pulse Rate from SpO2 Sensor 95 H 102 H 91 H Respiratory Rate 16 18 20 Blood Pressure 139/114 H 117/79 Blood Pressure [Left Arm] 117/79 Blood Pressure Mean 122 91 Blood Pressure Mean [Left Arm] 91 Blood Pressure Position [Left Arm] Lying Pulse Oximetry 99 98 97 Oxygen Delivery Method Room Air 01/26/19 17:10 01/26/19 17:20 01/26/19 17:30 Temperature Temperature Source Sepsis Recent Fever Within 48 Hours Sepsis New/Unexplained Change in Mental Status Sepsis Action Taken by Nursing Pulse Rate 105 H 115 H 99 H Pulse Rate [Left] Pulse Rate from SpO2 Sensor 92 H 79 95 H Respiratory Rate 22 21 14 Blood Pressure 121/94 120/72 111/78 Blood Pressure [Left Arm] Blood Pressure Mean 103 88 89 Blood Pressure Mean [Left Arm] Blood Pressure Position [Left Arm] Pulse Oximetry 96 97 96 Oxygen Delivery Method 01/26/19 17:40 01/26/19 17:50 01/26/19 18:00 Temperature Temperature Source Sepsis Recent Fever Within 48 Hours Sepsis New/Unexplained Change in Mental Status Sepsis Action Taken by Nursing Pulse Rate 105 H 105 H 96 H Pulse Rate [Left] Pulse Rate from SpO2 Sensor 95 H 101 H 78 Respiratory Rate 15 18 19 Blood Pressure 121/81 116/82 124/65 Blood Pressure [Left Arm] Blood Pressure Mean 94 93 84 Blood Pressure Mean [Left Arm] Blood Pressure Position [Left Arm] Pulse Oximetry 97 97 95 Oxygen Delivery Method 01/26/19 18:10 01/26/19 18:11 01/26/19 18:20 Temperature Temperature Source Sepsis Recent Fever Within 48 Hours Sepsis New/Unexplained Change in Mental Status Sepsis Action Taken by Nursing Pulse Rate 107 H 86 87 Pulse Rate [Left] Pulse Rate from SpO2 Sensor 89 83 83 Respiratory Rate 17 16 15 Blood Pressure 131/75 113/75 Blood Pressure [Left Arm] Blood Pressure Mean 93 87 Blood Pressure Mean [Left Arm] Blood Pressure Position [Left Arm] Pulse Oximetry 96 96 96 Oxygen Delivery Method 01/26/19 18:30 01/26/19 18:35 Temperature Temperature Source Sepsis Recent Fever Within 48 Hours Sepsis New/Unexplained Change in Mental Status Sepsis Action Taken by Nursing Pulse Rate 87 111 H Pulse Rate [Left] Pulse Rate from SpO2 Sensor 88 Respiratory Rate 15 16 Blood Pressure 111/69 111/69 Blood Pressure [Left Arm] Blood Pressure Mean 83 83 Blood Pressure Mean [Left Arm] Blood Pressure Position [Left Arm] Pulse Oximetry 96 96 Oxygen Delivery Method Room Air Constitutional: Vital signs reviewed. Eyes: Pupils are equal round reactive to light. Conjunctiva are noninjected. ENT: Pharynx is clear without erythema or exudate. Mucous membranes are moist. Neck supple without meningeal signs. Respiratory: Clear to auscultation bilaterally. Breath sounds are equal bilaterally. Cardiovascular: Tachycardic heart rate of 150. Normal rhythm. No rubs or gallops. GI: Soft, nondistended and nontender. Bowel sounds are present. Musculoskeletal: No peripheral edema. No lower extremity tenderness. Integumentary: No cyanosis. Neurological: The patient is awake and alert. No focal deficits. Psychiatric: Normal affect. Course 161: The patient was evaluated in room B06. A complete history and physical exam was performed. 1702: I reassessed the patient, and she was stable. 1720: The patient's heart rate is 106. Her chest pain is gone. 1736: I spoke with Dr. Meneses, [facility] hospitalist, about the patient's case. She will further evaluate the patient. Consultations Consultation #1: I spoke with Dr. Meneses, [facility] hospitalist, about the patient's case. She will further evaluate the patient. Time: 17:36 Administered Medications Discontinued Medications Diltiazem HCl (Cardizem) 10 mg IV NOW STA Stop: 01/26/19 16:23 Last Admin: 01/26/19 16:30 Dose: 10 mg Documented by: [id number] Cosigned by: [id number] Diltiazem HCl 125 mg/ Dextrose 125 mls @ 10 mls/hr IV .[id number] STA; Protocol Stop: 01/27/19 04:51 Last Admin: 01/26/19 16:47 Dose: 10 mg/hr, 10 mls/hr Documented by: [id number] Cosigned by: [id number] Sodium Chloride (Nss) 500 mls @ 999 mls/hr IV .Q31M JOSÉ MIGUEL Stop: 01/26/19 17:00 Last Infusion: 01/26/19 17:02 Dose: 0 mls/hr Documented by: [id number] Admin: 01/26/19 16:30 Dose: 999 mls/hr Documented by: [id number] Potassium Chloride (K Simon / Wtr) 10 meq in 100 mls @ 100 mls/hr IV ONE ONE Stop: 01/26/19 18:36 Last Admin: 01/26/19 18:14 Dose: 100 mls/hr Documented by: [id number] Medical Decision Making Differential Diagnosis The differential diagnosis includes: SVT, A-fib with RVR, electrolyte abnormality, metabolic derangement, unstable angina, and [facility] Attestation: I reviewed the patient's medical records. I did perform a limited focused review of portions of the patient's old chart on the electronic medical record. The patient has had no recent pertinent visits to this hospital. Home Medications Current Medication List: was personally reviewed by me Laboratory Data Attestation: I reviewed the patient's lab results. Result diagrams: 01/26/19 16:25 01/26/19 16:25 Lab Results 01/26/19 01/26/19 01/26/19 Range/Units 16:25 16:25 16:25 WBC 6.88 (4.8-10.8) K/uL RBC 4.90 (4.2-5.4) M/uL Hgb 15.5 (12.0-16.0) g/dL Hct 44.1 (37-47) % MCV 90.0 (80-100) fL MCH 31.6 (25-34) pg MCHC 35.1 (32-36) g/dL RDW Std Deviation 41.2 (36.4-46.3) fL RDW Coeff of Fide 12.5 (11.5-14.5) % Plt Count 215 (130-400) K/uL MPV 10.0 (7.4-10.4) fL Immature Gran % (Auto) 0.3 % Neut % (Auto) 44.0 % Lymph % (Auto) 45.5 % [place] % (Auto) 7.7 % Eos % (Auto) 2.2 % Baso % (Auto) 0.3 % Immature Gran # (Auto) 0.02 (0.00-0.02) K/uL Neut # (Auto) 3.03 (1.4-6.5) K/uL Lymph # (Auto) 3.13 (1.2-3.4) K/uL [place] # (Auto) 0.53 (0.11-0.59) K/uL Eos # (Auto) 0.15 (0-0.5) K/uL Baso # (Auto) 0.02 (0-0.2) K/uL Sodium 142 (136-145) mmol/L Potassium 3.4 L (3.5-5.1) mmol/L Chloride 108 H (98-107) mmol/L Carbon Dioxide 24 (21-32) mmol/L Anion Gap 10.0 (3-11) BUN 19 H (7-18) mg/dl Creatinine 0.74 (0.6-1.2) mg/dl Est Cr Clr Drug Dosing 80.3 ml/min Est GFR ( Amer) 99.2 Est GFR (Non-Af Amer) 85.6 BUN/Creatinine Ratio 25.1 H (10-20) Glucose 98 (70-99) mg/dl Calcium 9.8 (8.5-10.1) mg/dl Magnesium 2.1 (1.8-2.4) mg/dl Total Bilirubin 0.6 (0.2-1) mg/dl AST 22 (15-37) U/L ALT 20 (12-78) U/L Alkaline Phosphatase 117 (45-117) U/L POC Troponin I (0-0.045) ng/ml Troponin I < 0.015 (0-0.045) ng/ml NT-Pro-B Natriuret Pep 107 (0-900) pg/ml Total Protein 8.2 (6.4-8.2) gm/dl Albumin 4.5 (3.4-5.0) gm/dl Globulin 3.7 (2.5-4.0) gm/dl Albumin/Globulin Ratio 1.2 (0.9-2) TSH 4.040 (0.300-4.500) uIu/ml 01/26/19 Range/Units 16:32 WBC (4.8-10.8) K/uL RBC (4.2-5.4) M/uL Hgb (12.0-16.0) g/dL Hct (37-47) % MCV (80-100) fL MCH (25-34) pg MCHC (32-36) g/dL RDW Std Deviation (36.4-46.3) fL RDW Coeff of Fide (11.5-14.5) % Plt Count (130-400) K/uL MPV (7.4-10.4) fL Immature Gran % (Auto) % Neut % (Auto) % Lymph % (Auto) % [place] % (Auto) % Eos % (Auto) % Baso % (Auto) % Immature Gran # (Auto) (0.00-0.02) K/uL Neut # (Auto) (1.4-6.5) K/uL Lymph # (Auto) (1.2-3.4) K/uL [place] # (Auto) (0.11-0.59) K/uL Eos # (Auto) (0-0.5) K/uL Baso # (Auto) (0-0.2) K/uL Sodium (136-145) mmol/L Potassium (3.5-5.1) mmol/L Chloride (98-107) mmol/L Carbon Dioxide (21-32) mmol/L Anion Gap (3-11) BUN (7-18) mg/dl Creatinine (0.6-1.2) mg/dl Est Cr Clr Drug Dosing ml/min Est GFR ( Amer) Est GFR (Non-Af Amer) BUN/Creatinine Ratio (10-20) Glucose (70-99) mg/dl Calcium (8.5-10.1) mg/dl Magnesium (1.8-2.4) mg/dl Total Bilirubin (0.2-1) mg/dl AST (15-37) U/L ALT (12-78) U/L Alkaline Phosphatase (45-117) U/L POC Troponin I < 0.03 (0-0.045) ng/ml Troponin I (0-0.045) ng/ml NT-Pro-B Natriuret Pep (0-900) pg/ml Total Protein (6.4-8.2) gm/dl Albumin (3.4-5.0) gm/dl Globulin (2.5-4.0) gm/dl Albumin/Globulin Ratio (0.9-2) TSH (0.300-4.500) uIu/ml Imaging Data Radiologist's Impression: Radiology results as stated below per my review and the radiologist's interpretation: XR chest 1V portable HISTORY: Atypical chest pain. COMPARISON: Chest CT 07/15/2018. FINDINGS: No pneumothorax. No pleural effusions. No focal lung consolidations to suggest pneumonia. No evidence for pulmonary edema. Mild emphysema. The heart is normal in size. There is an electronic device overlying the left upper chest. IMPRESSION: No acute process. Electronically signed by: Jonn Archer M.D. 01/26/2019 5:11 PM ECG Data Attestation: I personally reviewed and interpreted this ECG as follows: Indication: chest pain Rate (beats per minute): 147 Rhythm: atrial fibrillation Findings: + ST depression (anterior, inferior, and lateral leads ) and + T-wave inversion (anterior, inferior, and lateral leads ); no PVC Additional Comments: Repeat EKG at 17:24: A-fib, 98 BPM. T-wave inversion in the inferior leads. No ST elevations. Blood Pressure Blood Pressure Findings: Elevated blood pressure Blood Pressure Disposition: Referred to patients primary care provider MDM Narrative I did evaluate the patient as noted above. The patient is presenting with tachycardia and chest discomfort. She has a prior history of SVT and A. fib but is not on any anticoagulation other than aspirin. IV access was established. The patient was placed on a continuous surveillance system monitor. I did order and personally review the patient's 12-lead EKG as described above. She has atrial fibrillation with RVR with significant ST changes as noted above. I did treat the patient with IV Cardizem. She was also placed on a Cardizem drip. I did order and personally reviewed the images of the patient's chest x-ray as described above. There is no evidence of acute process. I did order and review the patient's blood work as noted in the electronic medical record. CBC is unremarkable. Potassium is 3.4. She was given IV KCl. Troponin is negative. I did reassess the patient. Her heart rate has gone down significantly. I did repeat a twelve-lead EKG which showed continued atrial fibrillation but now rate controlled without ischemic changes. I did discuss the test results with the patient. She was continued on a Cardizem drip. I did recommend hospitalization for further care and evaluation. I did discuss the case with the hospitalist and outsole caser. Impression & Plan Atrial fibrillation with RVR, Chest pain, precordial, Hypokalemia, Abnormal EKG Critical Care Time Critical Care Time: Yes Total Critical Care Time: 35 I have personally spent approximately 35 minutes of critical care time in the direct management of this patient. This includes bedside care, interpretation of diagnostic studies, and testing, discussion with consultants, patient, and family members, and other required patient management activities. This 35 minutes is in excess of all separately billable procedures. Discharge Plan Visit Data *Final* Discharge Date/Time: 01/26/19 19:18 Chief Complaint: Shortness of Breath/Dyspnea Stated Complaint: WEAKNESS, SOB, CARDIAC ARYTHMIAS ED Provider: Adam Marc Discharge Problem: Atrial fibrillation with RVR, Chest pain, precordial, Hypokalemia, Abnormal EKG Patient Disposition: Admitted As Inpatient Discharge Instructions Interventions: ED Discharge Assessment Last Done: 01/26/19 19:18 The scribe's documentation has been prepared under my direction and personally reviewed by me in its entirety. I confirm that the note above accurately reflects all work, treatment, procedures, and medical decision making performed by me.
[2019-01-26] MEDS ORDERED: RIVAROXABAN 20 MG TAB PO SCH (21:30)
[2019-01-27 06:11] LABS: Basophils # (auto) 0.02 K/uL (0-0.2); Basophils % (auto) 0.4 %; Eosinophils # (auto) 0.17 K/uL (0-0.5); Eosinophils % (auto) 3.4 %; Hematocrit (blood only) 39.9 % (37-47); Hemoglobin 13.3 g/dL (12.0-16.0); Immature Granulocytes # (auto) 0.02 K/uL (0.00-0.02); Immature Granulocytes % (auto) 0.4 %; Lymphocytes # (auto) 2.46 K/uL (1.2-3.4); Lymphocytes % (auto) 49.8 %; Mean Corpuscular Hemoglobin 30.3 pg (25-34); Mean Corpuscular Hgb Conc 33.3 g/dL (32-36); Mean Corpuscular Volume 90.9 fL (80-100); Mean Platelet Volume 10.2 fL (7.4-10.4); Monocytes % (auto) 10.1 %; Neutrophils # (auto) 1.77 K/uL (1.4-6.5); Neutrophils % (auto) 35.9 %; Platelet Count 179 K/uL (130-400); RDW Coefficient of Variation 12.7 % (11.5-14.5); RDW Standard Deviation 41.9 fL (36.4-46.3); Red Blood Count 4.39 M/uL (4.2-5.4); White Blood Count 4.94 K/uL (4.8-10.8)
[2019-01-27 06:25] LABS: INR 1.3 (0.9-1.1); Partial Thromboplastin Ratio 1.2; Partial Thromboplastin Time 32.3 Seconds (21.0-31.0); Prothrombin Time 13.2 Seconds (9.0-12.0)
[2019-01-27 06:48] LABS: Albumin Level 3.4 gm/dl (3.4-5.0); BUN Creatinine Ratio 28.7 (10-20); Calcium 8.7 mg/dl (8.5-10.1); Creatinine Clr Calc Pharmacy 88.7 ml/min; Est GFR (African American) 107.7; Est GFR (Non-African American) 92.9
[2019-01-27 06:51] LABS: Estimated Average Glucose 103 mg/dl; Hemoglobin A1C 5.2 % (4.5-5.6)
[2019-01-27 06:56] LABS: Albumin Globulin Ratio 1.1 (0.9-2); Bilirubin,Total 0.5 mg/dl (0.2-1); Globulin 3.1 gm/dl (2.5-4.0); Total Protein 6.5 gm/dl (6.4-8.2)
[2019-01-27] MEDS ORDERED: FOLIC ACID 1 MG TAB PO SCH (09:00)
[2019-01-27] MEDS ORDERED: ASPIRIN 81 MG ECTAB PO SCH (09:00)
[2019-01-27] MEDS ORDERED: FLUTICASONE PROPIONATE NA SPR 16 GM BTL SCH (09:00)
[2019-01-27] MEDS ORDERED: THYROID PO SCH (09:00)
[2019-01-27] MEDS ORDERED: CALCIUM 600MG + VIT D 400 IU TAB PO SCH (09:00)
[2019-01-27] MEDS ORDERED: NON-FORMULARY MEDICATION (Biotin 1 MG) PO SCH (09:00)
[2019-01-27] MEDS ORDERED: CITALOPRAM 40 MG TAB PO SCH (09:00)
[2019-01-27] MEDS ORDERED: CHOLECALCIFEROL 1,000 UNITS TAB PO SCH (09:00)
[2019-01-27] MEDS ORDERED: ASCORBIC ACID 500 MG TAB PO SCH (09:00)
[2019-01-27] MEDS ORDERED: METOPROLOL SUCC 25MG EXT REL TAB PO SCH (09:00)
[2019-01-27] MEDS ORDERED: METHYLSULFONYLMETHANE 1000 MG PO SCH (09:00)
--- NOTE | 2019-01-27 13:15 | Cardiology Consultation ---
Date of Consultation January 27, 2019 Assessment & Plan (1) Atrial fibrillation with RVR: The patient does describe prior episodes of very brief atrial fibrillation. Perhaps these were identified on her event monitoring. I do not have records to support this diagnosis but she clearly had atrial fibrillation yesterday. She is not appear to have significant risk factors for atrial fibrillation other than age. She is not appear to have significant daytime somnolence or loud snoring suggestive of obstructive sleep apnea. She is not obese. She is not using bisphosphonates. She has not have a history of hypertension, valvular disease or cardiomyopathy. She does not endorse a habit of frequent alcohol use or heavy alcohol use. Whether she will continue to have frequent episodes of atrial fibrillation is unclear. I would expect a relatively infrequent and fairly brief pattern of episodes. We did discuss options for treatment of her atrial fibrillation to include no additional treatment, a pill in the pocket approach with flecainide or daily antiarrhythmic should she be significantly bothered by her palpitations. At this point we elected to try flecainide on a p.r.n. basis. She can use 300 mg of flecainide taken orally for an episode of atrial fibrillation that lasts about a half an hour. She should not repeat the dose on any given 24 hour period. If she is having frequent episodes she may benefit from a daily dose of flecainide. In that setting we would likely perform some form of ischemic evaluation in order to exclude coronary disease. She does not have structural heart disease otherwise. With regard to her risk of stroke, her chads Vasc score is 1 based exclusively on her gender. This puts her in a category of patients who are at extremely low risk of thromboembolic events. The risk of thromboembolic events approach is the risk of bleeding events on anticoagulants in this population. We did discuss the increased risk as she gets older and when she turned 65 her chads Vasc score will be to suggesting that a systemic anticoagulation has a benefit to her. She has elected not to start systemic anticoagulation at this point. Present on Admission?: Yes History of Present Illness Reason for Consultation: Atrial fibrillation Requesting Physician: Zaira Attending Physician: Dylan Holbrook History of Present Illness The patient is a 64-year-old woman without a known history of cardiac disease who has been experiencing symptoms of palpitations and fatigue recently. She was initially evaluated by her primary care physician for these complaints and currently wearing an event monitor. Generally she describes these palpitations as relatively fleeting in nature or very short-lived. Involve a sensation of an irregular heartbeat. They generally are not associated with other symptoms. Yesterday she experienced a more prolonged episode of which she felt was a rapid heart rate. She does have monitoring device at home and noticed higher heart rates. She also did have some associated dizziness, lightheadedness and breathing difficulty. She described a very vague sensation of chest pain that was relatively transient. She did not lose consciousness. She presented to the emergency room was discovered to have atrial fibrillation and high ventricular rates. She is placed on a rate control regimen and admitted for observation. Over the course of the evening she converted back to spontaneous sinus rhythm. Currently claims to be feeling well. She is somewhat tired but otherwise feeling well. She is not currently having any sense of palpitations. In general she is an active individual who performs routine walking for exercise. She does not describe any specific limitations associated with walking. She generally does not have exertional dyspnea or chest discomfort. She generally does not have dizziness or lightheadedness. She cannot recall suffering a syncopal episode. Allergies Allergy/AdvReac Type Severity Reaction Status Date / Time Sulfa (Sulfonamide Allergy Unknown . Verified 01/26/19 17:06 Antibiotics) morphine Allergy Hallucinati Verified 01/26/19 17:06 ng Home Medications Home Medications Medication Instructions Recorded Confirmed Type aspirin [Aspirin Low Dose] 81 mg PO DAILY 04/18/18 01/26/19 History biotin 1 mg PO DAILY 04/18/18 01/26/19 History cholecalciferol (vitamin D3) 2,000 unit PO DAILY 04/18/18 01/26/19 History [Vitamin D3] citalopram [Celexa] 40 mg PO DAILY 04/18/18 01/26/19 History cyclobenzaprine 10 mg PO Q8H PRN #21 tab 04/18/18 01/26/19 Rx folic acid 1 mg PO DAILY 04/18/18 01/26/19 History mometasone 2 spry INTRANASAL DAILY 04/18/18 01/26/19 History ascorbic acid (vitamin C) [Vitamin 2,000 mg PO DAILY 07/31/18 01/26/19 History C] calcium carbonate [Calcium 600] 1,200 mg PO DAILY 07/31/18 01/26/19 History methylsulfonylmethane [MSM] 1,000 mg PO DAILY 07/31/18 01/26/19 History Thyroid 8 1 dose PO DAILY 11/15/18 01/26/19 History flecainide 300 mg PO DAILY PRN #6 tab 01/27/19 Rx metoprolol succinate 25 mg PO DAILY #0 tab 01/27/19 01/26/19 Rx Patient History Medical History Atrial fibrillation DX 8 YEARS AGO - FOLLOWS W/ DR. LUCIO Chris's disease History of colitis History of ischemic bowel disease History of ventricular tachycardia "YEARS AGO" Osteoarthritis SVT (supraventricular tachycardia) "YEARS AGO" Surgical History History of breast biopsy History of left inguinal hernia repair History of lumpectomy of left breast History of vaginal hysterectomy Social History Preferred Language: Kiswahili Communication Ability: Effective Backpackers Manager Required: No Beliefs That Will Affect Care: None Current Living Situation: Spouse Current Living Situation Comment: DTR LIVES W/ PT Feels Safe at Home: Yes Smoking Status: Never smoker Second Hand Exposure: No ; Hx Alcohol Use: Yes Hx Substance Use: No Review of Systems Review of Systems: All systems reviewed & are unremarkable except as noted in HPI & below No recent constitutional symptoms such as fevers or chills. She did have some overall fatigue recently. No difficulty with bowel or bladder habits. No difficulty eating. No nausea vomiting. Physical Exam Physical Exam: She is alert and oriented x3. Mood affect appear normal. She answered all questions appropriately. HEENT: Sclerae are anicteric. Pupils are equal and reactive to light and accommodation. Extraocular movements were intact. Neuro: Cranial nerves intact Neck: Examination of the submandibular region did not reveal any significant lymphadenopathy. Carotids are palpable bilaterally and free of bruits on auscultation. There was no evidence of jugular venous distention. The thyroid was not enlarged. Lungs: Lungs are clear to auscultation bilaterally. There are no rales wheezes or rhonchi. She has normal respiratory effort without use of accessory muscles. There is normal pulmonary excursion. Cardiac: The rhythm was regular. S1 and S2 were normal. There are no murmurs on examination. The PMI was not markedly displaced on palpation. Abdomen: The abdomen was soft and nontender. Extremities: Patient has bilateral radial pulses that are equal in intensity. There is no evidence cyanosis or clubbing. There was no evidence of significant peripheral edema bilaterally. Skin: There are no rashes noted on examination today. Results & Data Vital Signs (Past 12 Hours) Vital Signs Temp Pulse Resp BP BP Pulse Ox 01/27/19 12:37 36.6 C 61 16 91/45 L 90/50 L 95 01/27/19 11:10 36.6 C 61 16 90/50 L 95 01/27/19 06:51 36.7 C 62 99/68 L 97 01/27/19 04:17 36.5 C 65 19 86/46 L 95 Laboratory Results Abnormal Lab Results 01/26/19 01/26/19 01/26/19 16:21 16:25 16:25 WBC 6.88 RBC 4.90 Hgb 15.5 Hct 44.1 MCV 90.0 MCH 31.6 MCHC 35.1 RDW Std Deviation 41.2 RDW Coeff of Fide 12.5 Plt Count 215 MPV 10.0 Immature Gran % (Auto) 0.3 Neut % (Auto) 44.0 Lymph % (Auto) 45.5 [place] % (Auto) 7.7 Eos % (Auto) 2.2 Baso % (Auto) 0.3 Immature Gran # (Auto) 0.02 Neut # (Auto) 3.03 Lymph # (Auto) 3.13 [place] # (Auto) 0.53 Eos # (Auto) 0.15 Baso # (Auto) 0.02 PT INR APTT PTT Ratio Sodium 142 Potassium 3.4 L Chloride 108 H Carbon Dioxide 24 Anion Gap 10.0 BUN 19 H Creatinine 0.74 Est Cr Clr Drug Dosing 80.3 Est GFR ( Amer) 99.2 Est GFR (Non-Af Amer) 85.6 BUN/Creatinine Ratio 25.1 H Glucose 98 Estimat Average Glucose Hemoglobin A1c Calcium 9.8 Magnesium 2.1 Total Bilirubin 0.6 AST 22 ALT 20 Alkaline Phosphatase 117 POC Troponin I Troponin I NT-Pro-B Natriuret Pep Total Protein 8.2 Albumin 4.5 Globulin 3.7 Albumin/Globulin Ratio 1.2 Triglycerides Cholesterol LDL Cholesterol, Calc VLDL Cholesterol, Calc HDL Cholesterol Cholesterol/HDL Ratio TSH 4.040 Hepatitis C Ab Screen Neg 01/26/19 01/26/19 01/27/19 16:25 16:32 00:15 WBC RBC Hgb Hct MCV MCH MCHC RDW Std Deviation RDW Coeff of Fide Plt Count MPV Immature Gran % (Auto) Neut % (Auto) Lymph % (Auto) [place] % (Auto) Eos % (Auto) Baso % (Auto) Immature Gran # (Auto) Neut # (Auto) Lymph # (Auto) [place] # (Auto) Eos # (Auto) Baso # (Auto) PT INR APTT PTT Ratio Sodium Potassium Chloride Carbon Dioxide Anion Gap BUN Creatinine Est Cr Clr Drug Dosing Est GFR ( Amer) Est GFR (Non-Af Amer) BUN/Creatinine Ratio Glucose Estimat Average Glucose Hemoglobin A1c Calcium Magnesium Total Bilirubin AST ALT Alkaline Phosphatase POC Troponin I < 0.03 Troponin I < 0.015 < 0.015 NT-Pro-B Natriuret Pep 107 Total Protein Albumin Globulin Albumin/Globulin Ratio Triglycerides Cholesterol LDL Cholesterol, Calc VLDL Cholesterol, Calc HDL Cholesterol Cholesterol/HDL Ratio TSH Hepatitis C Ab Screen 01/27/19 01/27/19 01/27/19 05:55 05:55 05:55 WBC 4.94 RBC 4.39 Hgb 13.3 Hct 39.9 MCV 90.9 MCH 30.3 MCHC 33.3 RDW Std Deviation 41.9 RDW Coeff of Fide 12.7 Plt Count 179 MPV 10.2 Immature Gran % (Auto) 0.4 Neut % (Auto) 35.9 Lymph % (Auto) 49.8 [place] % (Auto) 10.1 Eos % (Auto) 3.4 Baso % (Auto) 0.4 Immature Gran # (Auto) 0.02 Neut # (Auto) 1.77 Lymph # (Auto) 2.46 [place] # (Auto) 0.50 Eos # (Auto) 0.17 Baso # (Auto) 0.02 PT 13.2 H INR 1.3 H APTT 32.3 H PTT Ratio 1.2 Sodium 141 Potassium 4.0 D Chloride 110 H Carbon Dioxide 23 Anion Gap 8.0 BUN 19 H Creatinine 0.67 Est Cr Clr Drug Dosing 88.7 Est GFR ( Amer) 107.7 Est GFR (Non-Af Amer) 92.9 BUN/Creatinine Ratio 28.7 H Glucose 92 Estimat Average Glucose Hemoglobin A1c Calcium 8.7 Magnesium Total Bilirubin 0.5 AST 13 L ALT 18 Alkaline Phosphatase 86 POC Troponin I Troponin I NT-Pro-B Natriuret Pep Total Protein 6.5 D Albumin 3.4 Globulin 3.1 Albumin/Globulin Ratio 1.1 Triglycerides 108 Cholesterol 185 LDL Cholesterol, Calc 114 VLDL Cholesterol, Calc 22 HDL Cholesterol 49 Cholesterol/HDL Ratio 4 TSH Hepatitis C Ab Screen 01/27/19 05:55 WBC RBC Hgb Hct MCV MCH MCHC RDW Std Deviation RDW Coeff of Fide Plt Count MPV Immature Gran % (Auto) Neut % (Auto) Lymph % (Auto) [place] % (Auto) Eos % (Auto) Baso % (Auto) Immature Gran # (Auto) Neut # (Auto) Lymph # (Auto) [place] # (Auto) Eos # (Auto) Baso # (Auto) PT INR APTT PTT Ratio Sodium Potassium Chloride Carbon Dioxide Anion Gap BUN Creatinine Est Cr Clr Drug Dosing Est GFR ( Amer) Est GFR (Non-Af Amer) BUN/Creatinine Ratio Glucose Estimat Average Glucose 103 Hemoglobin A1c 5.2 Calcium Magnesium Total Bilirubin AST ALT Alkaline Phosphatase POC Troponin I Troponin I NT-Pro-B Natriuret Pep Total Protein Albumin Globulin Albumin/Globulin Ratio Triglycerides Cholesterol LDL Cholesterol, Calc VLDL Cholesterol, Calc HDL Cholesterol Cholesterol/HDL Ratio TSH Hepatitis C Ab Screen Diagnostic Findings Chest x-ray obtained on admission every any acute cardiopulmonary process Carotid Doppler and lower extremity duplex were both normal no evidence of carotid stenosis or DVT Echocardiogram performed today revealed preserved LV systolic function with only mild right atrial dilation. No other significant valvular abnormalities. ECG Additional Comments: EKG obtained this morning revealed normal sinus rhythm. Some mild nonspecific ST and T-wave changes. PG Care Time/CCT Total # of Minutes Spent Total Time Spent with Patient: Total time spent is greater than 50% in coordination of care (as documented) at patient's floor/unit and/or counseling patient:
--- NOTE | 2019-02-09 22:59 | Discharge Summary ---
Date of Service January 27, 2019 Admission HPI Per Admitting Provider Patient is a 64 years old female with past medical history of hypertension and depression presented to the emergency room with a complaint of persistent palpitations that started approximately 2 weeks ago. Patient was started on event monitor and she is scheduled appointment with regulatory and compliance technician for February 22. Her event monitor should, of next Sunday. Patient describes her palpitations associated with shortness of breath and having a back pain. Patient takes only baby aspirin 81 mg daily and metoprolol succinate 12.5 mg p.o. twice daily, cyclobenzaprine for back pain and some other supplemental vi tamins. Patient denies fever, chills, chest pain, abdominal pain, frequency, urgency, hematemesis, dysuria, melena, hematuria. Patient consider herself being otherwise in good health. Patient does not report any recent stressors. In the emergency room patient was started on diltiazem drip for A. fib's with RVR and Xarelto for anticoagulation to prevent a stroke. Labs are reviewed: 142, potassium 3.4, replenished with K rider 10 mEq x 1 and given 1 dose of potassium 40 mEq x 1 p.o., chloride 108, BUN 19, creatinine 85.6, magnesium 2.1, AST 22, ALT 20, troponin 0 0.03, CHF 4.04. Chest x-ray no acute process. Principal Diagnosis A. fib with RVR Discharge Exam Constitutional: WD/WN, vitals as above well developed Eyes: PERRL, conjunctivae normal, anicteric sclerae ENMT: external ear and nose normal, oropharynx normal Neck: trachea midline, no thyromegaly Respiratory: normal respiratory effort, lungs clear to auscultation Cardiovascular: Rate/Rhythm: + irregularly irregular Heart Sounds: normal S1 and normal S2 Gastrointestinal (Abdomen): normal bowel sounds, soft, nontender, no hepatosplenomegaly Musculoskeletal: no cyanosis or clubbing, extremities motor strength 5/5 Skin: no rashes, warm and dry Neurologic: patellar DTR's 2+ bilat, sensation intact Lymphatic: no cervical or axillary lymphadenopathy Discharge Data Allergies Allergy/AdvReac Type Severity Reaction Status Date / Time Sulfa (Sulfonamide Allergy Unknown . Verified 01/26/19 17:06 Antibiotics) morphine Allergy Hallucinati Verified 01/26/19 17:06 ng Consultations 01/26/19 17:37 ED Decision to Admit Stat 01/26/19 20:39 Consult Cardiology Routine Ordered Studies 01/26/19 18:47 US carotid doppler BI Stat US venous doppler LE BI Routine Hospital Course (1) Atrial fibrillation with RVR: Admit to PCU on telemetry for new onset of A. fib's with RVR Vital signs every 4 hours BNP pending, monitor daily CBC CMP, monitor electrolytes and replenish magnesium and potassium as needed TTE pending We will do US venous Doppler to rule out DVT and US of the carotid arteries buildup bilaterally to rule out stenosis Continue diltiazem drip Continue Xarelto 20 mg p.o. for A. fib's to prevent stroke CHAD2 1.9% risk of event per year if not anticoagulated. DVT prophylaxis as above already started on anticoagulation. Continue aspirin 81 Lipid panel pending in a.m. and A1c. Full code On day 2 of hospital stay, Patient improved. Appreciate input from cardio: The patient does describe prior episodes of very brief atrial fibrillation. Perhaps these were identified on her event monitoring. I do not have records to support this diagnosis but she clearly had atrial fibrillation yesterday. She is not appear to have significant risk factors for atrial fibrillation other than age. She is not appear to have significant daytime somnolence or loud snoring suggestive of obstructive sleep apnea. She is not obese. She is not using bisphosphonates. She has not have a history of hypertension, valvular disease or cardiomyopathy. She does not endorse a habit of frequent alcohol use or heavy alcohol use. Whether she will continue to have frequent episodes of atrial fibrillation is unclear. I would expect a relatively infrequent and fairly brief pattern of episodes. We did discuss options for treatment of her atrial fibrillation to include no additional treatment, a pill in the pocket approach with flecainide or daily antiarrhythmic should she be significantly bothered by her palpitations. At this point we elected to try flecainide on a p.r.n. basis. She can use 300 mg of flecainide taken orally for an episode of atrial fibrillation that lasts about a half an hour. She should not repeat the dose on any given 24 hour period. If she is having frequent episodes she may benefit from a daily dose of flecainide. In that setting we would likely perform some form of ischemic evaluation in order to exclude coronary disease. She does not have structural heart disease otherwise. With regard to her risk of stroke, her chads Vasc score is 1 based exclusively on her gender. This puts her in a category of patients who are at extremely low risk of thromboembolic events. The risk of thromboembolic events approach is the risk of bleeding events on anticoagulants in this population. We did discuss the increased risk as she gets older and when she turned 65 her chads Vasc score will be to suggesting that a systemic anticoagulation has a benefit to her. She has elected not to start systemic anticoagulation at this point. (2) Chest pain, precordial: Atypical chest pain. Reproducible. Patient reports no chest pain at this time. Serial troponins with EKG x2 to rule out acute coronary syndrome. (3) Hypokalemia: Potassium replenished with K rider 10 mEq +40 mEq p.o. Monitor potassium closely with daily labs. And replenished as needed. Total Time Total Time Spent Total Time Spent (In Minutes): 32 Total Time Includes: Examination of the Patient, Discharge Planning and Medication Reconciliation Discharge Plan Discharge Items Patient Disposition: Home - Self-Care Reason For Visit: PALPITATIONS Discharge Diagnosis: A. fib RVR Activity: Resume your previous activity Non-emergency contact: Primary Care Provider Call non-emergency contact if: you have any medication questions Follow-up/Referrals: Isabel Holloway MD [Primary Care Provider] - 02/03/19 1:45 pm (Please, follow up with Dr. Herman on SundayFebruary 03 at 1:45 pm. *If you need to change this appointment, call the office at [phone].) Diet: Heart Healthy, Low Fat and Low Sodium (2gm) Addtl Attending Provider Instructions: You were seen for A. Fib with RVR. You stroke risk is low, and you can be on Aspiring as a blood thinner. But once you turn 65, it is recommended to add a different blood thinner. Will recommend followup with PCP in 1-2 weeks. Flecainide can be used if symptoms return and last for more than 30 minutes. Also switched metoprolol to 25 mg once a day instead of 12.5 mg twice a day. Pending Studies at Discharge: No Stand-Alone Forms: [facility], Work/School Release (Inpt) Medications and DC Order Prescriptions: New flecainide 100 mg tablet 300 mg PO DAILY PRN (Reason: palpitations) Qty: 6 RF: 0 Continued citalopram [Celexa] 40 mg Tablet 40 mg PO DAILY RF: 0 aspirin [Aspirin Low Dose] 81 mg Tablet,Delayed Release (Dr/Ec) 81 mg PO DAILY RF: 0 mometasone 50 mcg/actuation spray,non-aerosol 2 spry Intranasal DAILY RF: 0 folic acid 1 mg Tablet 1 mg PO DAILY RF: 0 cholecalciferol (vitamin D3) [Vitamin D3] 1,000 unit Tablet 2,000 unit PO DAILY RF: 0 biotin 1 mg Capsule 1 mg PO DAILY RF: 0 cyclobenzaprine 10 mg tablet 10 mg PO Q8H PRN (Reason: muscle spasm) Qty: 21 RF: 0 ascorbic acid (vitamin C) [Vitamin C] 1,000 mg Tablet 2,000 mg PO DAILY RF: 0 calcium carbonate [Calcium 600] 600 mg calcium (1,500 mg) Tablet 1,200 mg PO DAILY RF: 0 methylsulfonylmethane [MSM] 1,000 mg Tablet 1,000 mg PO DAILY RF: 0 Thyroid 8 1 dose PO DAILY RF: 0 Changed metoprolol succinate 25 mg Tablet Extended Release 24 Hr 25 mg PO DAILY Qty: 0 RF: 0 Discharge Orders: Discharge Order (Routine); Ordered 01/27/19 Ordered By: Dylan Holbrook Admission Data Admit Date/Time: 01/26/19 18:39 Attending Provider: Dylan Holbrook Admit Provider: Teresa Meneses Primary Care Provider: Isabel Holloway Other Providers: Oumar Santiago Other Interventions: Discharge Summary Assessment (RN) Last Done: 01/27/19 12:37 DC Date/Time DO NOT enter until pt leaves facility: 01/27/19 13:00
== END 2019-01-27 13:00 | disposition home or self-care (01) | DRG 310 ==
LOC: ED 15:57 → SUATTDRO 18:39 → 2E 18:39
DX: E87.6 Hypokalemia; Z79.899 Other long term (current) drug therapy; Z79.82 Long term (current) use of aspirin; I10 Essential (primary) hypertension; F32.9 Major depressive disorder, single episode, unspecified; R07.81 Pleurodynia; I48.91 Unspecified atrial fibrillation